=== PATIENT | female | born 1980 | race African-American/Black ===

== ENCOUNTER 2021-08-14 08:32 | Emergency (ER) | payer MEDICAID ==
[~2021-08-14] VITALS: Ht 165.1 cm; Wt 140.6 kg
--- NOTE | 2021-08-14 08:43 | NUR ---
TO ER BED 1. BIB SELF C/O SORE THROAT STARTED 5AM THIS MORNING.
[2021-08-14 08:45] VITALS: BP 156/88
--- NOTE | 2021-08-14 08:50 | NUR ---
AT BEDSIDE FOR EVAL.
--- NOTE | 2021-08-14 08:59 | NUR ---
RAPID INFLUENZA AND STREP SPECIMEN OBTAINED AND SENT TO LAB.
--- NOTE | 2021-08-14 09:03 | NUR ---
CALLED LAB FOR SPECIMEN [employer] INST[employer]ER.
--- NOTE | 2021-08-14 10:10 | NUR ---
Patient discharged to home in stable condition. Written and verbal after care instructions given. Patient verbalizes understanding of instruction.
== END 2021-08-14 10:11 | disposition home or self-care (01) ==
LOC: ER 08:36
DX: J02.8 Acute pharyngitis due to other specified organisms (principal); J45.909 Unspecified asthma, uncomplicated
CPT/HCPCS: 86403-TC; 87070-TC

== ENCOUNTER 2022-01-08 07:56 | Emergency (ER) | payer MEDICAID ==
[~2022-01-08] VITALS: Ht 170.2 cm; Wt 113.4 kg
[2022-01-08 08:07] VITALS: BP 166/81
--- NOTE | 2022-01-08 08:15 | NUR ---
Ambulatory- limps on affected side
--- NOTE | 2022-01-08 09:08 | NUR ---
Patient discharged to home in stable condition. Written and verbal after care instructions given. Patient verbalizes understanding of instruction.
== END 2022-01-08 11:00 | disposition home or self-care (01) ==
LOC: ER 07:58
DX: M25.561 Pain in right knee (principal); J45.909 Unspecified asthma, uncomplicated

== ENCOUNTER 2022-04-16 09:40 | Emergency (ER) | payer MEDICAID ==
[~2022-04-16] VITALS: Ht 167.6 cm; Wt 142.9 kg
[2022-04-16 10:04] VITALS: BP 143/88
[2022-04-16] MEDS ORDERED: PRED50TA PO (10:22)
== END 2022-04-16 11:10 | disposition home or self-care (01) ==
LOC: ER 09:42
DX: J45.909 Unspecified asthma, uncomplicated (principal); Z76.0 Encounter for issue of repeat prescription

== ENCOUNTER 2022-10-14 19:43 | Emergency (ER) | payer MEDICAID ==
[~2022-10-14] VITALS: Ht 167.6 cm; Wt 142.9 kg
[~2022-10-14 19:43] MED LIST: BENZ-13 PO; PRED50TA PO
--- NOTE | 2022-10-14 19:50 | NUR ---
BIBSELF C/O SORE THROAT SINCE 10/02/22. AFEBRILE. TOLERATING R/A WELL WITH NO RESP DISTRESS.
[2022-10-14] MEDS ORDERED: KETO10TA2 PO (19:53)
[2022-10-14] MEDS ORDERED: PRED50TA PO (19:53)
[2022-10-14] MEDS ORDERED: DEXAMETHASONE SOD PHOSPHATE 10 MG/ML VIAL MC ONE (20:00)
[2022-10-14] MEDS ORDERED: DEXAMETHASONE SOD PHOSPHATE 10 MG/ML VIAL ONE (20:04)
[2022-10-14 22:08] VITALS: BP 130/70
== END 2022-10-14 20:00 | disposition home or self-care (01) ==
LOC: ER 19:45
DX: J02.9 Acute pharyngitis, unspecified (principal); J45.909 Unspecified asthma, uncomplicated; D64.9 Anemia, unspecified; Z79.899 Other long term (current) drug therapy
CPT/HCPCS: 99283; J1100

== ENCOUNTER 2023-01-26 19:33 | Emergency (ER) | payer MEDICAID ==
[~2023-01-26] VITALS: Ht 167.6 cm; Wt 136.1 kg
[~2023-01-26 19:33] MED LIST changes: +KETO10TA2 PO
[2023-01-26 19:35] VITALS: BP 134/76; TEMP 98; O2SAT 98
[2023-01-26] MEDS ORDERED: AMOX-430 PO (19:39)
[2023-01-26] MEDS ORDERED: HYDR-4209 PO (19:39)
== END 2023-01-26 20:00 | disposition home or self-care (01) ==
LOC: ER 19:34
DX: K08.89 Other specified disorders of teeth and supporting structures (principal); J45.909 Unspecified asthma, uncomplicated; D64.9 Anemia, unspecified; Z79.899 Other long term (current) drug therapy

== ENCOUNTER 2023-10-12 19:07 | Emergency (ER) | payer MEDICAID ==
[~2023-10-12] VITALS: Ht 167.6 cm; Wt 138.3 kg
[~2023-10-12 19:07] MED LIST changes: +AMOX-430 PO; +HYDR-4209 PO
[2023-10-12 19:11] VITALS: BP 135/84; TEMP 98.2; O2SAT 98
[2023-10-12] MEDS ORDERED: LIDO30AD10 TP (19:25)
[2023-10-12] MEDS ORDERED: CYCL5TAB PO (19:25)
[2023-10-12] MEDS ORDERED: NAPR-1164 PO (19:25)
[2023-10-12] MEDS: CYCLOBENZAPRINE 10 MG TABLET PO ONE (19:30)
[2023-10-12] MEDS ORDERED: CYCLOBENZAPRINE 10 MG TABLET ONE (19:32)
== END 2023-10-12 19:39 | disposition home or self-care (01) ==
LOC: ER 19:09
DX: M62.830 Muscle spasm of back (principal); J45.909 Unspecified asthma, uncomplicated; Z79.899 Other long term (current) drug therapy

== ENCOUNTER 2024-08-15 19:24 | Emergency (ER) | payer MEDICAID ==
[~2024-08-15] VITALS: Ht 167.6 cm; Wt 108.9 kg
[~2024-08-15 19:24] MED LIST changes: +CYCL5TAB PO; +LIDO30AD10 TP; +NAPR-1164 PO
[2024-08-15 19:39] VITALS: BP 134/79; TEMP 98.5; O2SAT 99
[2024-08-15] MEDS ORDERED: NAPROXEN 250 MG TABLET ONE (19:56)
[2024-08-15] MEDS: NAPROXEN 250 MG TABLET PO ONE (19:59)
[2024-08-15] MEDS ORDERED: NAPR-1009 PO (20:00)
== END 2024-08-15 20:10 | disposition home or self-care (01) ==
LOC: ER 19:26
DX: M77.9 Enthesopathy, unspecified (principal); J45.909 Unspecified asthma, uncomplicated; Z79.52 Long term (current) use of systemic steroids; Z79.899 Other long term (current) drug therapy

== ENCOUNTER 2024-10-17 12:44 | Emergency (ER) | payer OTHER, MEDICAID ==
[~2024-10-17] VITALS: Ht 167.6 cm; Wt 135.6 kg
[~2024-10-17 12:44] MED LIST changes: +NAPR-1009 PO
[2024-10-17 12:50] VITALS: BP 139/70; TEMP 98.5; O2SAT 100
[2024-10-17] MEDS ORDERED: dexaMETHasone SOD PHOSPHATE 1 ML ONE (13:01)
[2024-10-17] MEDS: dexaMETHasone SOD PHOSPHATE 10 MG/ML VIAL MC ONE (13:06)
[2024-10-17] MEDS ORDERED: LIDO20SO13 PO (14:54)
== END 2024-10-17 14:26 | disposition home or self-care (01) ==
LOC: ER 12:46
DX: J02.9 Acute pharyngitis, unspecified (principal); J45.909 Unspecified asthma, uncomplicated; Z79.52 Long term (current) use of systemic steroids
CPT/HCPCS: 99283; 87070; 87880; J1100; 86403-TC

== ENCOUNTER 2025-03-08 13:01 | Emergency (ER) | payer MEDICAID, OTHER ==
[~2025-03-08] VITALS: Ht 167.6 cm; Wt 124.7 kg
[~2025-03-08 13:01] MED LIST changes: +LIDO20SO13 PO
[2025-03-08 13:28] VITALS: BP 114/63; TEMP 98.6; O2SAT 100
[2025-03-08] MEDS ORDERED: IBUP-1953 PO (15:05)
[2025-03-08] MEDS ORDERED: BENZ-13 PO (15:05)
[2025-03-08] MEDS ORDERED: IBUPROFEN 600 MG TABLET ONE (15:13)
[2025-03-08] MEDS: IBUPROFEN 600 MG TABLET PO ONE (15:16)
== END 2025-03-08 15:17 | disposition home or self-care (01) ==
LOC: ER 13:07
DX: J06.9 Acute upper respiratory infection, unspecified (principal); B97.89 Other viral agents as the cause of diseases classified elsewhere; J45.909 Unspecified asthma, uncomplicated; Z79.52 Long term (current) use of systemic steroids